=== PATIENT | female | born 1960 | race Caucasian/White ===

== ENCOUNTER → 2018-02-23 | Outpatient (CLI) | payer OTHER ==
[~2018-02-23] MED LIST: ACET325T14 PO; BIOTIN PO; CHLO1CAP PO; ENAL1TAB5 PO; ENAL5TAB PO; FENO45CA; FISH OIL PO; LACT1CAP37 PO; LEVO500T47 PO; MAG355OR15 PO; MULT1CAP19 PO; NICO-485 TD; OMEP20CA9 PO; POLY17PO5 PO; POTA20TA91 PO; SUCR1TAB PO
[2018-02-23 15:26] LABS: ALANINE AMINOTRANSFERASE 54 U/L (12-78); ALBUMIN 3.6 g/dL (3.4-5.0); ANION GAP 9 mmol/L (5-15); CHLORIDE 108 mmol/L (98-107); CREATININE 0.64 mg/dL (0.55-1.02)
[2018-02-23 15:28] LABS: ALKALINE PHOSPHATASE 78 U/L (45-117); BILIRUBIN,TOTAL 0.4 mg/dL (0.2-1.0); TOTAL PROTEIN 7.4 g/dL (6.4-8.2)
== END | disposition home or self-care (01) ==
LOC: STAR 14:46
PROVIDERS: ATTEND Surgery
DX: Z01.818 Encounter for other preprocedural examination (principal); N64.59 Other signs and symptoms in breast; N64.52 Nipple discharge; Z80.3 Family history of malignant neoplasm of breast
CPT/HCPCS: 36415; 80053

== ENCOUNTER → 2018-02-23 | Outpatient (CLI) | payer OTHER ==
[~2018-02-23] MED LIST changes: +LIDOCAINE 1%, 20ML ONE; +LIDOCAINE 1%-EPI 1:100K, 20ML ONE; +SODIUM BICARBONATE 4.0%, 5ML ONE
== END | disposition home or self-care (01) ==
LOC: CFH 08:42
PROVIDERS: ATTEND Surgery
DX: N64.52 Nipple discharge (principal); R92.8 Other abnormal and inconclusive findings on diagnostic imaging of breast
CPT/HCPCS: 19285; 77065; J3490

== ENCOUNTER 2018-02-25 14:44 | Emergency (ER) | payer OTHER ==
[~2018-02-25] VITALS: Ht 157.5 cm; Wt 58.7 kg
[~2018-02-25 14:44] MED LIST changes: -LIDOCAINE 1%, 20ML ONE; -LIDOCAINE 1%-EPI 1:100K, 20ML ONE; -SODIUM BICARBONATE 4.0%, 5ML ONE
[2018-02-25] MEDS ORDERED: LORazepam 1MG TABLET ONE (16:00)
[2018-02-25] MEDS ORDERED: LORazepam 1MG TABLET PO ONE (16:00)
[2018-02-25 16:41] LABS: BASOPHILS # (AUTO) 0.04 x10^3/uL (0-0.1); BASOPHILS % (AUTO) 1 % (0-1); EOSINOPHILS # (AUTO) 0.08 x10^3/uL (0-0.4); EOSINOPHILS % (AUTO) 1 % (1-7); LYMPHOCYTES # (AUTO) 2.15 x10^3/uL (1-3.4); LYMPHOCYTES % (AUTO) 29 % (22-44); MD NO; MEAN CORPUSCULAR HEMOGLOBIN 34.1 pg (27.0-34.8); MEAN CORPUSCULAR HGB CONC 34.1 g/dL (32.4-35.8); MEAN CORPUSCULAR VOLUME 99.9 fL (80-100); MEAN PLATELET VOLUME 8.7 fL (7.4-10.4); MONOCYTES # (AUTO) 0.53 x10^3/uL (0.2-0.8); MONOCYTES % (AUTO) 7 % (2-9); NEUTROPHILS # (AUTO) 4.69 x10^3/uL (1.8-6.8); NEUTROPHILS % (AUTO) 63 % (42-75); PLATELET COUNT 241 x10^3/uL (130-400); RED BLOOD COUNT 4.57 x10^6/uL (3.82-5.3); RED CELL DISTRIBUTION WIDTH 13.6 % (9.6-15.2)
[2018-02-25 16:48] LABS: ALANINE AMINOTRANSFERASE 57 U/L (12-78); ALBUMIN 3.8 g/dL (3.4-5.0); ANION GAP 11 mmol/L (5-15); CALCIUM 8.6 mg/dL (8.5-10.1); CHLORIDE 106 mmol/L (98-107); CREATININE 0.61 mg/dL (0.55-1.02)
[2018-02-25 16:52] LABS: ALKALINE PHOSPHATASE 70 U/L (45-117); BILIRUBIN,TOTAL 0.4 mg/dL (0.2-1.0); TOTAL PROTEIN 7.8 g/dL (6.4-8.2); TROPONIN I < 0.015 ng/mL (0.000-0.045)
[2018-02-25 17:52] VITALS: BP 168/99
[2018-03-02] MEDS ORDERED: LORazepam 1MG TABLET PO ONE (08:30)
[2018-03-02] MEDS ORDERED: hydrALAzine 20 MG/ML, 1ML IV ONE (09:00)
== END 2018-02-25 18:09 | disposition home or self-care (01) ==
LOC: ED 18:03
DX: I10 Essential (primary) hypertension (principal); R00.2 Palpitations; F41.1 Generalized anxiety disorder; E78.5 Hyperlipidemia, unspecified
CPT/HCPCS: 36415; 71045; 80053; 84436; 84443; 84484; 85025; 93005; 99285

== ENCOUNTER 2018-03-02 07:28 | Day surgery (SDC) | payer OTHER ==
[~2018-03-02] VITALS: Ht 157.5 cm; Wt 58.0 kg
[2018-03-02] MEDS ORDERED: LACTATED RINGERS 1,000 ML IV SCH (07:42)
[2018-03-02] MEDS ORDERED: ONDANSETRON 2MG/ML, 2ML IVPush ONE (08:00)
[2018-03-02] MEDS ORDERED: SCOPOLAMINE PATCH, 1.5MG PATCH.TD72 TD ONE (08:00)
[2018-03-02] MEDS ORDERED: GABAPENTIN 300 MG CAPSULE PO ONE (08:00)
[2018-03-02] MEDS ORDERED: ACETAMINOPHEN 500 MG TABLET PO ONE (08:00)
[2018-03-02 08:08] VITALS: BP 171/129
[2018-03-02] MEDS ORDERED: LABETALOL 5MG/ML, 20ML IV PRN (08:30)
[2018-03-02] MEDS ORDERED: hydrALAzine 20 MG/ML, 1ML IV PRN (08:30)
[2018-03-02] MEDS ORDERED: FENTANYL PF 100 MCG/2ML IV PRN (08:30)
[2018-03-02] MEDS ORDERED: OXYcodone 5 MG/5 ML ORAL.SOL UDC PO PRN (08:30)
[2018-03-02] MEDS ORDERED: PROCHLORPERAZINE 5 MG/ML, 2ML IV PRN (08:30)
[2018-03-02] MEDS ORDERED: DIPHENHYDRAMINE 50 MG/ML, 1ML IVPush PRN (08:30)
[2018-03-02] MEDS ORDERED: HYDROmorphone 1 MG/ML, 1ML IV PRN (08:30)
[2018-03-02] MEDS ORDERED: MEPERIDINE/PF 25MG/0.5ML IVPush PRN (08:30)
[2018-03-02] MEDS ORDERED: METHYLENE BLUE 10 MG/ML 10ML ONE (09:08)
[2018-03-02] MEDS ORDERED: BUPIVACAINE/PF 0.5% ONE (09:08)
[2018-03-02] MEDS ORDERED: EPINEPHRINE 1 MG/ML, 1ML ONE (09:08)
[2018-03-02] MEDS ORDERED: MIDAZOLAM 1 MG/ML, 2ML ONE (09:21)
[2018-03-02] MEDS ORDERED: FENTANYL PF 100 MCG/2ML ONE (09:21)
[2018-03-02] MEDS ORDERED: PROPOFOL 10 MG/ML, 20ML ONE (09:55)
[2018-03-02] MEDS ORDERED: NEOSTIGMINE 1 MG/ML, 10ML ONE (09:55)
[2018-03-02] MEDS ORDERED: CEFAZOLIN 1,000 MG ONE (09:55)
[2018-03-02] MEDS ORDERED: DEXAMETHASONE 4 MG/ML, 1ML ONE (09:55)
[2018-03-02] MEDS ORDERED: ONDANSETRON 2MG/ML, 2ML ONE (09:55)
[2018-03-02] MEDS ORDERED: SUCCINYLCHOLINE 20 MG/ML, 10ML ONE (09:55)
[2018-03-02] MEDS ORDERED: ROCURONIUM 10MG/ML,5ML ONE (09:55)
[2018-03-02] MEDS ORDERED: GLYCOPYRROLATE 0.2MG/1ML, 5ML ONE (09:55)
[2018-03-02] MEDS ORDERED: KETOROLAC 30 MG/1 ML ONE (15:31)
== END 2018-03-02 13:30 | disposition home or self-care (01) ==
LOC: OUT 07:28
PROVIDERS: ATTEND Surgery
DX: D24.1 Benign neoplasm of right breast (principal); I10 Essential (primary) hypertension; Z79.899 Other long term (current) drug therapy; Z87.891 Personal history of nicotine dependence; Z72.89 Other problems related to lifestyle
CPT/HCPCS: 19125; 76098; 88305; J0171; J0330; J0360; J0690; J1100; J1885; J2250; J2405; J2704; J2710; J3010; J3490; J7120; Q9968